=== PATIENT | female | born 1995 | race Native Hawaiian/Other Pacific Islander ===

== ENCOUNTER 2022-01-05 09:10 | Outpatient (CLI) | payer OTHER | END 2022-01-05 19:00 | disposition home or self-care (01) | LOC: US 09:10 → MRI 10:00 → US 19:00 | PROVIDERS: ATTEND Nurse Practitioner Family | DX: R55 Syncope and collapse (principal); N92.0 Excessive and frequent menstruation with regular cycle | CPT/HCPCS: A9576 ==